=== PATIENT | female | born 1970 | race Hispanic/Latino ===

== ENCOUNTER 2021-10-08 11:41 | Emergency (ER) | payer MEDICARE ==
[2021-10-08] MEDS ORDERED: HALOPERIDOL LACTATE 5 MG/1 ML INJ IM ONE (11:57)
--- NOTE | 2021-10-08 12:01 | Emergency Department Report ---
HPI - General Chief Complaint: Extremity Problem,Nontraumatic Time Seen by Provider: 10/08/21 11:47 - HPI HPI: Room 6 The patient is a 50-year-old female present with a chief complaint of rambling speech and leg pain. The patient was reportedly at a convenience store arguing with an attendant and other customers. EMS was called for "psych." Per EMS the patient has tangential speech and has complained of leg pain from her varicose veins. The patient has rambling tangential speech but denies suicidal homicidal ideation. Patient denies auditory visual hallucinations. When asked what made her come to the emergency department patient replies "I have varicose veins and I have been homeless for 6 months." Patient acknowledges that she has had pain in both of her legs for the past 2 weeks ED Past Medical Hx - Past Medical History Hx Psychiatric Treatment: Yes (Schizophrenia, bipolar disorder) Hx Asthma: Yes - Surgical History Past Surgical History?: No - Family History Family history: no significant - Social History Smoking Status: Unknown if ever smoked Substance Use Type: None - Medications Home Medications: Home Medications Medication Instructions Recorded Confirmed Last Taken Type Prazosin 2 mg PO QHS 10/08/21 10/08/21 Unknown History ED Review of Systems ROS: Stated complaint: LEG PAIN Other details as noted in HPI Comment: Unobtainable due to pts medical conditions Physical Exam - Physical Exam Physical Exam: GENERAL: The patient is well-developed well-nourished female sitting on stretcher exhibiting rambling speech. [] HEENT: Normocephalic. Atraumatic. Extraocular motions are intact. Patient has moist mucous membranes. NECK: Supple. Trachea midline CHEST/LUNGS: Clear to auscultation. There is no respiratory distress noted. HEART/CARDIOVASCULAR: Regular. There is no tachycardia. There is no gallop rub or murmur. ABDOMEN: Abdomen is soft, nontender. Patient has normal bowel sounds. There is no abdominal distention. SKIN: There is no rash. There is no edema. There is no diaphoresis. NEURO: The patient is awake, alert, and oriented . The patient exhibits tangential rambling speech. The patient is cooperative. The patient has no focal neurologic deficits. The patient has normal speech (but rambling and tangential). Normal gait MUSCULOSKELETAL: There is some discomfort to palpation of the right and lower extremity. There is no evidence of acute injury. ED Medical Decision Making - Lab Data Result diagrams: 10/08/21 12:01 10/08/21 12:01 - Differential Diagnosis Bipolar disorder/manic episode, DVTs, varicose veins Critical care attestation.: If time is entered above; I have spent that time in minutes in the direct care of this critically ill patient, excluding procedure time. ED Disposition Clinical Impression: Bipolar disorder Disposition: 07 LEFT AGAINST MEDICAL ADVICE Is pt being admited?: No Does the pt Need Aspirin: No Condition: Undetermined Time of Disposition: 12:51 (Patient leaving AMA)
[2021-10-08 12:15] LABS: Basophils % (Auto) 0.3 % (0.0-1.8); Eosinophils # (Auto) 0.1 K/mm3 (0.0-0.4); Eosinophils % (Auto) 0.6 % (0.0-4.3); Hematocrit 36.7 % (30.3-42.9); Hemoglobin 12.5 gm/dl (10.1-14.3); Lymphocytes # (Auto) 2.2 K/mm3 (1.2-5.4); Lymphocytes % (Auto) 23.3 % (13.4-35.0); Mean Corpuscular HGB Conc 34 % (30-34); Mean Corpuscular Volume 87 fl (79-97); Monocytes # (Auto) 0.8 K/mm3 (0.0-0.8); Platelet Count 255 K/mm3 (140-440); Red Blood Count 4.21 M/mm3 (3.65-5.03); Red Cell Distribution Width 14.4 % (13.2-15.2)
[2021-10-08 12:30] LABS: Blood Urea Nitrogen 8 mg/dL (7-17); Calcium 9.1 mg/dL (8.4-10.2); Hemolysis Index 4
[2021-10-08 12:31] LABS: BUN/Creatinine Ratio 13
[2021-10-08 12:45] VITALS: BP 129/68
[2021-10-08 13:00] LABS: Bacteria,Urine 1+ /HPF (Negative); Bilirubin,Urine NEG (Negative); Blood,Urine SM (Negative); Color,Urine Yellow (Yellow); Mucus,Urine FEW /HPF; Protein,Urine <15 mg/dL mg/dL (Negative); Urobilinogen,Urine < 2.0 mg/dL (<2.0)
[2021-10-08 13:13] LABS: Amphetamine Screen,Urine Negative; Benzodiazepines Screen,Urine Negative; Cannabinoid Screen,Urine Negative; Cocaine Screen,Urine Negative; Methadone Screen,Urine Negative; Opiate Screen,Urine Negative
== END 2021-10-08 12:52 | disposition left against medical advice (07) ==
LOC: ED 11:41
DX: F31.9 Bipolar disorder, unspecified (principal); J45.909 Unspecified asthma, uncomplicated
CPT/HCPCS: 36415; 80048; 80307; 81001; 85025; 96372; 99284; J1630; 80320; G0480